=== PATIENT | female | born 1955 | race Caucasian/White ===

== ENCOUNTER 2022-07-05 21:50 | Inpatient (IN) | payer MEDICARE, SELFPAY ==
[2022-07-05] VITALS (7 sets, daily range): BP systolic 112–135; BP diastolic 43–57; PULSE 78–91; RESP 13–27; TEMP 36.6; O2SAT 95–99
--- NOTE | ~2022-07-05 | XR_ITS ---
EXAMINATION: XR chest 2V DATE: 07/05/2022 22:10 INDICATION: Chest pain TECHNIQUE: PA and lateral views of the chest were obtained. COMPARISON: None FINDINGS: Linear opacity left lower lung zone consistent with discoid atelectasis/scarring. No other airspace o pacities, pulmonary edema, pleural effusion or pneumothorax. The cardiomediastinal silhouette is norm al. Dual lead pacemaker seen with leads projecting over the expected locations of the right atrium an d right ventricle. Likely coronary artery stenting. Neurostimulator leads projecting over the central canal at the thoracic spine. There are bridging osteophytes at multiple levels in the spine, consist ent with diffuse idiopathic skeletal hyperostosis (DISH). Calcific lesions along the posterior left g reater tuberosity consistent with left infraspinatus calcific tendinitis. IMPRESSION: 1. Mild discoid atelectasis/scarring at the left lower lung zone. No other acute cardiopulmonary dise ase. Reviewed, dictated and finalized at location A. IMPRESSION: 1. Mild discoid atelectasis/scarring at the left lower lung zone. No other acut e cardiopulmonary disease.
--- NOTE | ~2022-07-05 | CT_ITS ---
CT of the Abdomen and Pelvis: Indication: Abdominal pain Technique: 2.5 mm axial scans were obtained through the abdomen and pelvis following intravenous adm inistration of 100 cc of Omnipaque 350. Dose reduction technique was used on this scan by utilizing a utomated exposure control and iterative reconstruction technique. The dose-length product (DLP) was 5 97.43 mGy-cm. Findings: Scans through the lung bases are unremarkable. There are numerous, scattered, irregular hypodense lesions throughout the liver, suspicious for hepat ic metastatic disease. Largest individual lesion measures approximately 3.5 cm in diameter. The splee n, pancreas, gallbladder, adrenals and kidneys are within normal limits. There are atherosclerotic calcifications of the aorta. There are several mildly prominent lymph nodes the epigastric region and isaac hepatis.. No bowel obstruction or bowel wall thickening. Large stool burden present, throughout the colon. Images through the pelvis were performed. Urinary bladder unremarkable. No adnexal mass evident. No a scites. Impression: Numerous hepatic metastases. Primary source is unclear based on this exam. Several mildly prominent lymph nodes in the epigastric region/isaac hepatis. Mickie metastatic disease is not excluded. Constipation. Reviewed, dictated and finalized at [facility]. Impression: Numerous hepatic metastases. Primary source is unclear based on this exam. Several mildly prominent lymph nodes in the epigastric region/isaac hepatis. No edgar metastatic disease is not excluded. Constipation.
--- NOTE | 2022-07-05 21:55 | ECG_ITS ---
Measurements Intervals [place] Rate: 85 P: 46 MO: 235 QRS: -73 QRSD: 170 T: 95 QT: 435 QTc: 520 Interpretive Statements ATRIAL SENSE- ELECTRONIC VENTRICULAR PACEMAKER NO FURTHER INTERPRETATION IS POSSIBLE ATYPICAL ECG NO PREVIOUS ECG AVAILABLE FOR COMPARISON Electronically Signed On 07-06-2022 6:37:57 CDT by Weston Angel D.O.
[2022-07-05 22:15] LABS: Hematocrit 27.7 % (37.0-47.0); Hemoglobin 8.6 g/dL (12.0-15.0); Immature Platelet Fraction Pct 4.1 % (0.9-11.2); Mean Corpuscular Hemoglobin 28.6 pg (26-34); Mean Platelet Volume 11.4 fl (7.4-10.4); Platelet Count Result 150 k/mm3 (150-375); Red Blood Count 3.01 M/mm3 (4.2-5.4); Red Cell Distribution Width 28.1 % (11.5-14.5); White Blood Count 13.5 K/mm3 (4.5-10.0)
[2022-07-05 22:25] LABS: Alanine Aminotransferase 40 U/L (6-35); Albumin Level 3.8 g/dL (3.5-5.1); Alkaline Phosphatase 205 U/L (38-126); Anion Gap 7 mmol/L (8-16); Aspartate Amino Transferase 57 U/L (14-36); Bilirubin,Total 0.2 mg/dL (0.2-1.3); Blood Urea Nitrogen 47 mg/dL (7-17); Calcium 8.7 mg/dL (8.4-10.2); Carbon Dioxide 26 mmol/L (22-30); Chloride 103 mmol/L (98-107); Estimated CRCL calculation 52 ml/min; Estimated Glomerular Filt Rate > 60; Glucose 134 mg/dL (65-110); Lipase 126 U/L (23-300); Sodium 136 mmol/L (137-145)
[2022-07-05 22:36] LABS: Troponin I 0.017 ng/mL (0.000-0.034)
[2022-07-05 22:43] LABS: Band Neutrophils Percent 7 % (0-6); Eosinophils Absolute Manual 0.13 K/mm3 (0.02-0.5); Eosinophils Percent Manual 1 % (0-4); Lymphocytes Absolute Manual 1.48 K/mm3 (1.1-4.5); Monocytes Absolute Manual 0.27 K/mm3 (0.1-0.90); Monocytes Percent Manual 2 % (3-9); Neutrophils Absolute Manual 11.61 K/mm3 (1.7-7.2); Neutrophils Percent Manual 79 % (46-73); Platelet Estimate Adequate (Adequate); Total Cells Counted 100
--- NOTE | 2022-07-05 22:43 | PC.NURSE ---
EMS stated that patient received one nitro tablet. Initially blood pressure was 170/110 and chest pain was 7/10. After nitro tablet blood pressure was 110/70 and chest pain was down to a 3/10.
[2022-07-05 22:45] LABS: Anisocytosis 1+ (NORMAL); Macrocytosis 1+ (NORMAL); Microcytosis 1+ (NORMAL); Poikilocytosis 1+ (NORMAL)
[2022-07-05 22:46] LABS: Hypochromasia 2+ (NORMAL); Schistocytes None Seen (NORMAL); Tear Drop Cells 1+ (NORMAL)
[2022-07-05 23:41] LABS: Prothrombin Time 13.6 Seconds (11.1-14.7)
[2022-07-05 23:42] LABS: Partial Thromboplastin Time 25.4 SECONDS (22.3-36.8)
[2022-07-05] MEDS: ONDANSETRON INJ 4 MG/2 ML VIAL IV PUSH (23:55)
[2022-07-06] VITALS (16 sets, daily range): BP systolic 127–178; BP diastolic 48–82; PULSE 60–82; RESP 18–25; TEMP 35.9–37.3; O2SAT 97–100; BMI 29.0
--- NOTE | 2022-07-06 00:12 | ED.GENADULT ---
HPI - General Adult General Chief complaint: Chest Pain Stated complaint: CP Time Seen by Provider: 07/05/22 22:02 History of Present Illness HPI narrative: This is a 67-year-old female presenting ED with chief complaint of chest pain. However once you talk to her it is actually epigastric pain. Patient says that the pain started at 8:00 a.m. and is a stabbing/ pressure-like pain that is nonradiating, 8/10 in intensity and getting better. She has had this happen in the past but she does not know what the medical outcome was. The pain is worse in certain positions. It is associated with diaphoresis and cough. Is not associated with nausea vomiting exertion or shortness of breath. Related Data Allergies Allergy/AdvReac Type Severity Reaction Status Date / Time codeine Allergy Swelling Verified 07/05/22 22:59 Penicillins Allergy Swelling Verified 07/05/22 22:59 Sulfa (Sulfonamide Allergy Swelling Verified 07/05/22 22:59 Antibiotics) [facility] Past Medical History Medical History COPD (chronic obstructive pulmonary disease) HTN (hypertension) Pacemaker Exam Narrative: APPEARANCE: patient appears uncomfortable Head: atraumatic. EYES: EOMI, NOSE: Atraumatic NECK: Trachea midline RESPIRATORY: No increased rate of breathing, clear to auscultation CARDIOVASCULAR: RRR, ABDOMINAL: abdomen is distended, tender in the right upper quadrant, no guarding rebound MUSCULOSKELETAl: No obvious deformities NEURO: Alert. Moving 4/4 extremities SKIN:: Warm, dry. Normal color PSYCHIATRIC: Normal affect Course Vital Signs Vital signs: Vital Signs Pulse Rate 91 07/05/22 21:56 Pulse Oximetry 99 07/05/22 21:56 Oxygen Delivery Room Air 07/05/22 21:56 Temperature 98 F 07/05/22 21:57 Pulse Rate 82 07/06/22 01:31 Respiratory Rate 22 H 07/06/22 01:31 Blood Pressure 146/71 H 07/06/22 01:31 Pulse Oximetry 99 07/06/22 01:31 Oxygen Delivery Room Air 07/05/22 22:05 Medical Decision Making [facility] Narrative Medical decision making narrative: -Presentation: 67-year-old female presenting with epigastric pain. -DDX includes but is not limited to: Gastritis, gallbladder disease, liver disease, constipation/small-bowel obstruction -Co-morbidities complicating care: history of COPD and hypertension and multiple cardiac -Social determinants of health: patient is disabled due to a back injury, lives alone -External Chart Review: None -Hx from independent Sources: EMS report -Discussion of Management/Consultants: Open-hospitalist -Independent interpretation of studies: Blood cells are elevated at 13.5 with 7% bandemia. Hemoglobin of 8.6. No priors to compare to. metabolic panel unremarkable. Mild elevations in her liver enzymes. Tropes were 0.017 -> .024. chest x-ray is unremarkable. CT abdomen pelvis was interpreted: Multiple defined lesions are seen liver suspicious for metastasis, unknown origin, large stool burden, colonic diverticulosis. Case was discussed with Dr. Sterling. Patient was started on antibiotics for GI coverage. Dx tests considered but not ordered: -Procedures: -Interventions: Levofloxacin 750, metronidazole 500, Dilaudid 0.5, Zofran 4 mg, Zofran 4 mg, 1000 mg Tylenol, 125 cc/hour LR -Shared decision making / Disposition: patient will be admitted to the hospital for further management. -RX Vital Signs Vital Signs: Vital Signs Pulse Rate 91 07/05/22 21:56 Pulse Oximetry 99 07/05/22 21:56 Oxygen Delivery Room Air 07/05/22 21:56 Temperature 98 F 07/05/22 21:57 Pulse Rate 82 07/06/22 01:31 Respiratory Rate 22 H 07/06/22 01:31 Blood Pressure 146/71 H 07/06/22 01:31 Pulse Oximetry 99 07/06/22 01:31 Oxygen Delivery Room Air 07/05/22 22:05 Lab Data 07/05/22 22:07 07/05/22 22:07 Labs: Lab Results 07/05/22 07/06/22 Range/Un
[2022-07-06] MEDS: HYDROmorphone HCL INJ (*CRX) 1 MG/ML SYR 0.5 MG IV PUSH (00:34)
[2022-07-06 01:52] LABS: Troponin I 0.021 ng/mL (0.000-0.034)
--- NOTE | 2022-07-06 05:40 | ADMGEN ---
This patient, Clotilde Webb, was admitted to Medical Room 245-. Patient/family oriented to hospital policies and general routines including ID bracelet, bed and alarms, visiting hours, pain management, procedures, bathroom and other care routines, personal items, smoking policy, room service/diet, and visiting hours. Information on how to activate the Rapid Response Team has been discussed. Patient/Family are encouraged to report perceived risks to care and to ask questions if they do not understand what they are told or what they should do.
[2022-07-06 06:56] LABS: Troponin I 0.025 ng/mL (0.000-0.034)
[2022-07-06] MEDS: LACTATED RINGERS 1,000 ML 125 ML IV CONT ×2 (07:03→16:44)
[2022-07-06] MEDS: metroNIDAZOLE 500 MG/ISO 100ML 500 MG/100 ML BAG 100 MG IVPB (07:03)
[2022-07-06 07:59] LABS: Hematocrit 28.9 % (37.0-47.0); Hemoglobin 8.7 g/dL (12.0-15.0); Mean Corpuscular HGB Conc 30.1 g/dl (32-36); Mean Corpuscular Hemoglobin 28.2 pg (26-34); Mean Corpuscular Volume 93.5 fl (80-100); Mean Platelet Volume 11.1 fl (7.4-10.4); Platelet Count Result 141 k/mm3 (150-375); Red Blood Count 3.09 M/mm3 (4.2-5.4); Red Cell Distribution Width 28.3 % (11.5-14.5); White Blood Count 8.4 K/mm3 (4.5-10.0)
[2022-07-06 08:07] LABS: Alanine Aminotransferase 37 U/L (6-35); Albumin Level 3.7 g/dL (3.5-5.1); Alkaline Phosphatase 197 U/L (38-126); Anion Gap 8 mmol/L (8-16); Aspartate Amino Transferase 45 U/L (14-36); Bilirubin,Total 0.3 mg/dL (0.2-1.3); Blood Urea Nitrogen 38 mg/dL (7-17); Calcium 8.8 mg/dL (8.4-10.2); Carbon Dioxide 22 mmol/L (22-30); Chloride 105 mmol/L (98-107); Estimated CRCL calculation 62 ml/min; Estimated Glomerular Filt Rate > 60; Glucose 117 mg/dL (65-110); Potassium 4.3 mmol/L (3.4-5.0); Sodium 135 mmol/L (137-145)
[2022-07-06 08:36] LABS: Glucose Point of Care 101 mg/dl (65-105)
[2022-07-06] MEDS: allopurinoL 100 MG TABLET PO (08:41)
[2022-07-06] MEDS: FERROUS SULFATE 324 MG TABLET PO (08:41)
[2022-07-06] MEDS: FUROSEMIDE 40 MG TABLET PO (08:41)
[2022-07-06] MEDS: ISOSORBIDE MONONITRATE 30 MG TAB.ER.24H PO ×2 (08:41→16:43)
[2022-07-06] MEDS: SERTRALINE HCL 50 MG TABLET 100 MG PO (08:41)
[2022-07-06] MEDS: PANTOPRAZOLE 40 MG TABLET PO (08:41)
[2022-07-06] MEDS: amLODIPine BESYLATE 5 MG TABLET PO (08:41)
[2022-07-06] MEDS: MAGNESIUM OXIDE 400 MG TABLET PO (08:41)
[2022-07-06] MEDS: NEOMYCIN/POLYMYXIN/BACITRACIN OINTMENT 15 GM TUBE 1 APPLIC TOPICAL (11:14)
[2022-07-06 12:12] LABS: Glucose Point of Care 137 mg/dl (65-105)
--- NOTE | 2022-07-06 13:53 | PM.IMHP ---
H&P: HPI History of Present Illness Date/Time: 07/06/22 13:53 Chief Complaint: 07/06/22 Narrative: Date of service: 07/06/2022 Clotilde Webb is a 67-year-old female with a history of right lung cancer currently receiving radiation, CHF, CAD, type 2 diabetes mellitus peripheral neuropathy, hypertension, COPD, tobacco abuse, and several other medical problems who presented to the emergency department on 07/05/2022 with concerns for right great toe infections starting 1 week ago that she has noticed has been progressively worsening. The patient stated that she developed a callus on her right great toe about 1 month ago. Reports that she frequently gets calluses and follows up with her brick veneer maker, Dr. Morris, who shave some down with a razor blade. She felt that with this gallops, she could shave it on her own at home. She then noticed a small wound forming on the right great toe which she began putting hydrocortisone cream on and covering with bandages until she noticed worsening over the past week. Yesterday she developed nausea and felt that she needed to come in for evaluation. She has not had any episodes of emesis and she denies fevers or chills. She does endorse 3/10 pain in her toe but reports poor sensation secondary to neuropathy. She denies any abdominal pain and she has not had diarrhea. States that her last bowel movement was yesterday. She denies dizziness, lightheadedness, weakness, shortness of breath, chest pain. She is tolerating her diet. She is established with Oncology, Dr. Mendiola in [place], and had her most recent radiation therapy last 06/30/2022. She was scheduled to have repeat imaging next week. In the ED, her vital signs are stable, WBC 13.5, hemoglobin 8.6, total bilirubin within normal limits, AST, ALT, alk-phos elevated, troponin negative, CXR with mild historian atelectasis/scarring with no acute cardiopulmonary disease, and CT of abdomen/pelvis showed numerous hepatic metastases with several mild prominent lymph nodes in epigastric region, as well as findings of constipation. Review of Systems Review of Systems: All systems reviewed & are unremarkable except as noted in HPI and below PMFSH Past Medical History Medical History (Updated 07/06/22 @ 14:42 by Devi Tiwari PA-C) CAD (coronary artery disease) Cancer of right lung COPD (chronic obstructive pulmonary disease) History of amputation of toe Left 3rd toe Right 5th toe HTN (hypertension) Neuropathy Pacemaker Tobacco use Type 2 diabetes mellitus Surgical History Surgical History (Updated 07/06/22 @ 14:05 by Devi Tiwari PA-C) History of appendectomy History of History of coronary artery stent placement History of hysterectomy Family History Family History (Updated 07/06/22 @ 14:08 by Devi Tiwari PA-C) Son Acute myocardial infarction History of blood clots Cerebrovascular accident Mother Congestive heart failure Father Acute myocardial infarction Social History Social History (Updated 07/06/22 @ 14:07 by Devi Tiwari PA-C) Social History: Patient is a DNR. Her sister Nan is her surrogate decision maker Smoking packs per day: 1 Smoking cigarettes per day: 20.0 Years smoked: 55 Smoking pack-years: 55.00 Smoking status: Current every day smoker Alcohol intake: never Substance use: never Lack of Transportation: No Lack of Food: Never True Current Housing: I Have Housing Concerned About Future Housing: No Difficulty Paying Gas/Electric Bills: No Difficulty Paying for Meds: No Currently Unemployed: No Education: High School Diploma/GED Difficulty w/ Childcare or Family Care: No Spiritual care concerns: No Meds Home Medications and Allergies Home Medications Medication Instructions Recorded Confirmed Type allopurinol 100 mg tablet 100 mg PO DAILY 07/06/22 07/06/22 History amlodipine 5 mg tablet 5 mg PO DAILY 07/06/22
--- NOTE | 2022-07-06 18:22 | PDONCCN ---
[facility] - Date of Consult Date/Time: 07/06/22 18:22 Requesting Physician: Devi Tiwari PA-C Primary Care Provider: Carlitos Mixon, - Consult Narrative Reason for consult: Extensive stage small cell lung cancer Narrative: Clotilde Webb is a 67 year old female with diagnosis of limited stage small cell lung cancer currently receiving radiation therapy and chemotherapy by Dr. Mendiola and last treatment was about a week ago. Patient also has history of congestive heart failure, coronary artery disease and type 2 diabetes came into the hospital with right great toe infection started about a week ago. She was also complaining of nausea. She is complaining of abdominal discomfort. Denies any diarrhea and constipation. Labs in the ED showed WBC of 13.5 with hemoglobin of 8.6. Chest x-ray showed no acute cardiopulmonary process. CT scan showed multiple liver metastasis and several prominent lymph node in the epigastric region. Her last radiation therapy treatment was on June 30. Review of Systems - Review of Systems All systems reviewed & are unremarkable except as noted in [facility] and [facility] Medical History: Medical History (Last Updated 07/06/22 @ 14:05 by Devi Tiwari PA-C) CAD (coronary artery disease) Cancer of right lung COPD (chronic obstructive pulmonary disease) History of amputation of toe Left 3rd toe Right 5th toe HTN (hypertension) Neuropathy Pacemaker Tobacco use Type 2 diabetes mellitus Surgical History: Surgical History (Last Updated 07/06/22 @ 14:05 by Devi Tiwari PA-C) History of appendectomy History of History of coronary artery stent placement History of hysterectomy Family History: Family History (Last Updated 07/06/22 @ 14:08 by Devi Tiwari PA-C) Son Acute myocardial infarction History of blood clots Cerebrovascular accident Mother Congestive heart failure Father Acute myocardial infarction - Social History Social History: Social History (Last Updated 07/06/22 @ 14:07 by Devi Tiwari PA-C) Alcohol Use: Alcohol intake: never Substance Use: Substance use: never Others: Spiritual care concerns: No Smoking Status: Smoking status: Current every day smoker Smoking Pack-years: Smoking packs per day: 1 Smoking cigarettes per day: 20.0 Years smoked: 55 Smoking pack-years: 55.00 Social Determinants of Health: Has the Lack of Transportation Kept You From Medical Appointments or From Getting Medications?: No Within the Past 12 Months, Were You Worried Whether Your Food Would Run Out Before You Got Money to Buy More?: Never True What is Your Housing Situation Today?: I Have Housing Are You Worried That in the Next 2 Months, You May Not Have Your Own Housing to Live In?: No Do You Have Trouble Paying Your Heating Or Electricity Bill?: No Do You Have Trouble Paying For Medicines?: No Are You Currently Unemployed and Looking for Work?: No Highest Level of Education Completed: High School Diploma/GED Do You Have Trouble With Childcare or the Care of a Family Member?: No Exam - Vital Signs Vital Signs - 24 hr 07/05/22 21:56 07/05/22 21:56 07/05/22 21:57 Temperature 36.6 C Pulse Rate 91 86 Respiratory Rate 14 Blood Pressure 112/57 L Pulse Oximetry 99 99 Oxygen Delivery Room Air Room Air 07/05/22 22:05 07/05/22 22:59 07/05/22 22:51 Temperature Pulse Rate 78 80 Respiratory Rate 17 13 Blood Pressure 118/44 L 118/44 L Pulse Oximetry 99 99 97 Oxygen Delivery Room Air 07/05/22 23:16 07/05/22 23:31 07/06/22 00:39 Temperature Pulse Rate 78 82 82 Respiratory Rate 27 H 24 H 25 H Blood Pressure 120/43 L 135/49 L 178/82 H Pulse Oximetry 95 96 97 Oxygen Delivery 07/06/22 00:46 07/06/22 01:01 07/06/22 01:16 Temperature Pulse Rate 75 71 80 Respiratory Rate 21 H 21 H 24 H Blood Pressure 152/64 H 130/68
[2022-07-06 20:10] LABS: Iron 186 ug/dL (37-170)
[2022-07-06 20:19] LABS: Percent Iron Saturation 74 % (20-50)
[2022-07-06] MEDS: ZOLPIDEM TARTRATE (*CRX) 5 MG TABLET PO (21:06)
[2022-07-06] MEDS: DOCUSATE SODIUM 100 MG CAPSULE PO (21:06)
[2022-07-06 21:16] LABS: Folic Acid 10.4 ng/mL (2.76->20); Vitamin B12 > 1000.0 pg/mL (239-931)
[2022-07-06 23:03] LABS: Glucose Point of Care 99 mg/dl (65-105)
[2022-07-07] VITALS: PULSE 74
--- NOTE | 2022-07-07 00:05 | PC.NURSE ---
Addendum entered by Osorio Dyer RN 07/07/22 00:14: Patient confirmed desire to remain full code temporarily during current hospitalization. Original Note: Per provider H&P patient is designated DNR. This nurse questioned patient about code status and patient verbalized that she does wish to be DNR, but at this time would like for code status to remain full code and not changed to DNR.
[2022-07-07] MEDS: LACTATED RINGERS 1,000 ML 125 ML IV CONT (02:30)
[2022-07-07] MEDS: ACETAMINOPHEN 325 MG TABLET 650 MG PO (03:56)
[2022-07-07 04:00] VITALS: PULSE 76
[2022-07-07 04:43] VITALS: BP 153/65; PULSE 72; RESP 20; TEMP 36.9; O2SAT 100
[2022-07-07 05:58] LABS: Anion Gap 3 mmol/L (8-16); Blood Urea Nitrogen 25 mg/dL (7-17); Calcium 8.4 mg/dL (8.4-10.2); Carbon Dioxide 31 mmol/L (22-30); Chloride 105 mmol/L (98-107); Estimated CRCL calculation 55 ml/min; Estimated Glomerular Filt Rate > 60; Glucose 94 mg/dL (65-110); Mean Corpuscular HGB Conc 30.8 g/dl (32-36); Mean Corpuscular Hemoglobin 28.6 pg (26-34); Mean Corpuscular Volume 92.9 fl (80-100); Mean Platelet Volume 11.4 fl (7.4-10.4); Platelet Count Result 121 k/mm3 (150-375); Potassium 4.1 mmol/L (3.4-5.0); Red Cell Distribution Width 27.6 % (11.5-14.5); Sodium 139 mmol/L (137-145); White Blood Count 5.5 K/mm3 (4.5-10.0)
[2022-07-07 06:27] LABS: Hepatitis B Surface Antigen Negative (Negative)
[2022-07-07 06:33] LABS: HAV RESULT Negative (Negative); Hepatitis B Core IgM Result Negative (Negative)
[2022-07-07 06:44] LABS: Hepatitis C Virus Antibody Negative (Negative)
[2022-07-07] MEDS: amLODIPine BESYLATE 5 MG TABLET PO (07:47)
[2022-07-07] MEDS: PANTOPRAZOLE 40 MG TABLET PO (07:47)
[2022-07-07] MEDS: ISOSORBIDE MONONITRATE 30 MG TAB.ER.24H PO (07:47)
[2022-07-07] MEDS: MAGNESIUM OXIDE 400 MG TABLET PO (07:47)
[2022-07-07] MEDS: allopurinoL 100 MG TABLET PO (07:48)
[2022-07-07] MEDS: FUROSEMIDE 40 MG TABLET PO (07:48)
[2022-07-07] MEDS: DOCUSATE SODIUM 100 MG CAPSULE PO (07:48)
[2022-07-07] MEDS: SERTRALINE HCL 50 MG TABLET 100 MG PO (07:48)
[2022-07-07] MEDS: NEOMYCIN/POLYMYXIN/BACITRACIN OINTMENT 15 GM TUBE 1 APPLIC TOPICAL (07:50)
[2022-07-07 08:00] VITALS: PULSE 64
[2022-07-07 08:14] LABS: Glucose Point of Care 97 mg/dl (65-105)
[2022-07-07] MEDS: UMECLIDINIUM/VILANTEROL 62.5-25 MCG ELLIPTA 1 PUFF INHALATION (08:47)
[2022-07-07] MEDS: FERROUS SULFATE 324 MG TABLET PO (10:19)
--- NOTE | 2022-07-07 11:33 | PM.DS ---
DS: Admitting Diagnosis Discharge Date 07/07/2022 Admitting Diagnosis Liver masses Open wound of great toe Malignant neoplasm of unspecified part of right bronchus or lung Type 2 diabetes mellitus, chronic Tobacco use Transaminitis Constipation DS: Discharge Diagnosis Discharge Diagnosis (1) Liver masses: Code(s): R16.0 - Hepatomegaly, not elsewhere classified Status: Acute Assessment and Plan: CT of abdomen/pelvis on presentation shows numerous hepatic metastases with unclear primary source Patient does have known history of lung cancer currently being treated with chemo/radiation and likely metastatic disease. oncology consulted and recommend patient follow up with her oncologist. Patient is established with oncologist, Dr. Mendiola Patient to sign release of information form for imaging to be sent to her Oncologist. (2) Open wound of great toe: Qualifiers: Encounter type: initial encounter Laterality: right Qualified Code(s): S91.101A - Unspecified open wound of right great toe without damage to nail, initial encounter Code(s): S91.103A - Unspecified open wound of unspecified great toe without damage to nail, initial encounter Status: Acute Assessment and Plan: Patient developed to wound after she shaved a callus off with a razor blade No obvious signs/symptoms of infection wound care consulted and reported to continue Neosporin ointment. Continue Neosporin ointment with dressing counseled to check feet daily and report s/s acute infection. (3) Cancer of right lung: Qualifiers: Lung location: unspecified part of lung Qualified Code(s): C34.91 - Malignant neoplasm of unspecified part of right bronchus or lung Code(s): C34.91 - Malignant neoplasm of unspecified part of right bronchus or lung Status: Chronic Assessment and Plan: As above, patient is established with Oncology and is undergoing radiation therapy Last radiation was 06/30/2022 (4) Type 2 diabetes mellitus: Qualifiers: Diabetes mellitus chcf insulin use: without chcf use Diabetes mellitus complication status: with neurologic complications Diabetes mellitus complication detail: with polyneuropathy Qualified Code(s): E11.42 - Type 2 diabetes mellitus with diabetic polyneuropathy Code(s): E11.9 - Type 2 diabetes mellitus without complications Status: Chronic Assessment and Plan: Blood sugars are well controlled at this time and it sounds that patient is diet controlled She is no longer taking metformin and is not on any other hypoglycemic agents or insulin Accu-Cheks, sliding scale insulin, and hypoglycemic protocol Stable (5) Tobacco use: Code(s): Z72.0 - Tobacco use Status: Chronic Assessment and Plan: Patient smokes 1 pack per day Continue to educate on smoking cessation Nicotine patch available if needed (6) Transaminitis: Code(s): R74.01 - Elevation of levels of liver transaminase levels Status: Acute Assessment and Plan: Likely secondary to hepatic metastases. Total bilirubin is within normal limits Monitor LFTs hepatitis panel negative. 07/06/22 AST 45, ALT 37, Alk phos 197, Tbili 0.3 (7) Constipation: Qualifiers: Constipation type: drug induced constipation Qualified Code(s): K59.03 - Drug induced constipation Code(s): K59.00 - Constipation, unspecified Status: Acute Assessment and Plan: Constipation noted on CT of abdomen/pelvis. Patient reports having a normal bowel movement yesterday Patient did receive a dose of Levaquin and Flagyl admission, however no findings to suggest acute intra-abdominal infection and this was not continued. Treated with daily MiraLax and Colace BID. Continue outpatient as needed. (8) Anemia: Qualifiers: Anemia type: unspecified type Qualified Code(s): D64.9 - Anemia,
== END 2022-07-07 12:05 | disposition home or self-care (01) | DRG 605 ==
LOC: ANHED 07-06 04:25 → ANH2MED 07-06 04:39
PROVIDERS: Internal Medicine Hematology & Oncology; Physician Assistant; Admitting Provider Internal Medicine; Emergency Provider Emergency Medicine; PCP Internal Medicine; Visit Provider Nurse Practitioner Family
DX: S91.101A Unspecified open wound of right great toe without damage to nail, initial encounter (principal); C34.91 Malignant neoplasm of unspecified part of right bronchus or lung; C78.7 Secondary malignant neoplasm of liver and intrahepatic bile duct; L08.9 Local infection of the skin and subcutaneous tissue, unspecified; W26.8XXA Contact with other sharp object(s), not elsewhere classified, initial encounter; D64.81 Anemia due to antineoplastic chemotherapy; D50.8 Other iron deficiency anemias; E11.42 Type 2 diabetes mellitus with diabetic polyneuropathy; F17.210 Nicotine dependence, cigarettes, uncomplicated; I11.0 Hypertensive heart disease with heart failure; I50.9 Heart failure, unspecified; I25.10 Atherosclerotic heart disease of native coronary artery without angina pectoris; J44.9 Chronic obstructive pulmonary disease, unspecified; K59.03 Drug induced constipation; Z88.0 Allergy status to penicillin; Z92.21 Personal history of antineoplastic chemotherapy; Z92.3 Personal history of irradiation; Z95.0 Presence of cardiac pacemaker; Z89.422 Acquired absence of other left toe(s); Z89.421 Acquired absence of other right toe(s); Z90.49 Acquired absence of other specified parts of digestive tract; Z95.5 Presence of coronary angioplasty implant and graft; Z90.710 Acquired absence of both cervix and uterus; Z66 Do not resuscitate; Z79.01 Long term (current) use of anticoagulants
CPT/HCPCS: 36415; 71046; 74177; 80048; 80053; 80074; 82607; 82728; 82746; 82948; 83540; 83550; 83690; 84484; 85025; 85027; 85055; 85610; 85730; 93005; 94640; 96365; 96375; 99285; A9270; J0131; J1170; J1956; J2405; J7120; Q9967